=== PATIENT | male | born 1945 | race Caucasian/White ===

== ENCOUNTER 2019-02-11 14:45 | Inpatient (IN) ==
[2019-02-11] MEDS ORDERED: Aspirin 81 MG TAB.CHEW PO ONE (14:59)
[2019-02-11] MEDS ORDERED: Furosemide 40 MG/4 ML VIAL IVP ONE (15:02)
[2019-02-11 15:33] LABS: Mean Corpuscular Volume 94.1 fL (83.0-100.0)
[2019-02-11 15:35] LABS: Basophils % 0.7 %; Eosinophils # 0.2 K/mcL (0.0-0.6); Eosinophils % 4.3 %; Hematocrit 44.7 % (37.5-50.1); Immature Granulocytes % 0.7 % (0-4); Immature Platelets 2.8 % (1.1-6.1); Lymphocytes # 0.8 K/mcL (0.6-4.6); Mean Corpuscular HGB Conc 33.6 g/dL (31.6-35.5); Mean Corpuscular Hemoglobin 31.6 pg (28.0-33.3); Mean Platelet Volume 9.9 fL (9.4-12.4); Monocytes # 0.3 K/mcL (0.0-1.3); Monocytes % 7.7 %; Neutrophils # 3.1 K/mcL (1.6-8.9); Red Blood Count 4.75 M/mcL (4.19-5.50); Segmented Neutrophils % 69.6 %; White Blood Count 4.4 K/mcL (4.3-11.1)
[2019-02-11 15:38] LABS: Platelet Count 56 K/mcL (140-400)
[2019-02-11 15:47] LABS: INR 1.1
[2019-02-11 15:50] LABS: Activated Partial Thrombo Time 32.9 Seconds (26.0-36.0)
[2019-02-11 15:51] LABS: BUN/Creatinine Ratio 19 (6-26); Blood Urea Nitrogen 22 mg/dL (8-23); Calcium 9.1 mg/dL (8.6-10.3); Carbon Dioxide 30 mEq/L (23-29); Chloride 106 mEq/L (98-107); Glucose 189 mg/dL (70-105); Osmolality,Calculated 300 (280-300); Sodium 141 mEq/L (136-145); Troponin I < 0.03 ng/mL (< 0.04); eGFR For African Americans > 60 (> 60); eGFR For Non-African Americans > 60 (> 60)
[2019-02-11] MEDS ORDERED: *HR* Heparin 5,000 UNIT/ML VIAL IVP ONE (16:16)
[2019-02-11] MEDS ORDERED: *HR* Heparin 5,000 UNIT/ML VIAL IVP PRN ×2 (16:16)
[2019-02-11 16:25] LABS: Alanine Aminotransferase 31 Units/L (7-52); Albumin 3.7 g/dL (3.5-5.7); Albumin/Globulin Ratio 1.6 (1.1-2.2); Alkaline Phosphatase 75 Units/L (34-104); Aspartate Amino Transferase 30 Units/L (13-39); Bilirubin,Direct 0.5 mg/dL (0.0-0.2); Bilirubin,Indirect 2.1 mg/dL (0.0-1.2); Bilirubin,Total 2.6 mg/dL (0.3-1.0); Globulin 2.3 g/dL (2.4-3.5)
[2019-02-11] MEDS: Heparin 25,000 UNIT/250 ML D5W 25,000 UNIT/250 ML IV.SOLN IVC SCH (16:50)
[2019-02-11] MEDS ORDERED: Naloxone 0.4 MG/ML INJ IVP PRN (17:20)
[2019-02-11] MEDS ORDERED: tiZANidine 4 MG TABLET PO PRN (17:48)
[2019-02-11] MEDS: tiZANidine 4 MG TABLET PO SCH (20:15)
[2019-02-11] MEDS: Gabapentin 300 MG CAPSULE PO SCH (20:15)
[2019-02-11] MEDS: Lactulose Oral Soln 20 GM/30 ML UDC PO SCH (20:16)
[2019-02-11] MEDS: *HR* OxyCODONE Immed Rel 15 MG TABLET PO PRN (22:21)
[2019-02-12] MEDS: *HR* OxyCODONE Immed Rel 15 MG TABLET PO PRN ×3 (06:16→20:23)
[2019-02-12 07:40] LABS: Basophils % 0.6 %; Eosinophils # 0.2 K/mcL (0.0-0.6); Eosinophils % 4.4 %; Hematocrit 40.2 % (37.5-50.1); Hemoglobin 13.7 g/dL (12.9-16.9); Immature Granulocytes % 0.8 % (0-4); Lymphocytes # 0.9 K/mcL (0.6-4.6); Lymphocytes % 18.1 %; Mean Corpuscular HGB Conc 34.1 g/dL (31.6-35.5); Mean Corpuscular Volume 93.9 fL (83.0-100.0); Mean Platelet Volume 10.3 fL (9.4-12.4); Monocytes # 0.4 K/mcL (0.0-1.3); Monocytes % 9.2 %; Neutrophils # 3.2 K/mcL (1.6-8.9); Red Blood Count 4.28 M/mcL (4.19-5.50); Red Cell Distribution Width 15.1 % (11.5-14.5); Segmented Neutrophils % 66.9 %; White Blood Count 4.8 K/mcL (4.3-11.1)
[2019-02-12 07:41] LABS: Platelet Count 58 K/mcL (140-400)
[2019-02-12 07:52] LABS: BUN/Creatinine Ratio 24 (6-26); Blood Urea Nitrogen 24 mg/dL (8-23); Calcium 8.5 mg/dL (8.6-10.3); Carbon Dioxide 31 mEq/L (23-29); Chloride 107 mEq/L (98-107); Glucose 119 mg/dL (70-105); Osmolality,Calculated 295 (280-300); Potassium 3.3 mEq/L (3.5-5.1); Sodium 140 mEq/L (136-145); eGFR For African Americans > 60 (> 60); eGFR For Non-African Americans > 60 (> 60)
[2019-02-12] MEDS: Gabapentin 300 MG CAPSULE PO SCH ×2 (09:21→20:23)
[2019-02-12] MEDS: Finasteride 5 MG TABLET PO SCH (09:22)
[2019-02-12] MEDS: Furosemide 40 MG TABLET PO SCH (09:22)
[2019-02-12] MEDS: Aspirin Enteric Coated 81 MG Tablet PO SCH (09:23)
[2019-02-12] MEDS: Lactulose Oral Soln 20 GM/30 ML UDC PO SCH ×3 (09:24→20:24)
[2019-02-12] MEDS: tiZANidine 4 MG TABLET PO SCH ×2 (09:25→20:23)
[2019-02-12] MEDS ORDERED: Ondansetron 4 MG/2 ML VIAL IVP PRN (10:10)
[2019-02-12] MEDS: Heparin 25,000 UNIT/250 ML D5W 25,000 UNIT/250 ML IV.SOLN IVC SCH (19:21)
[2019-02-13] MEDS: *HR* OxyCODONE Immed Rel 15 MG TABLET PO PRN ×3 (02:52→17:36)
[2019-02-13 05:51] LABS: Hemoglobin 13.2 g/dL (12.9-16.9)
[2019-02-13 05:53] LABS: Basophils % 0.8 %; Eosinophils # 0.2 K/mcL (0.0-0.6); Eosinophils % 4.3 %; Hematocrit 39.9 % (37.5-50.1); Immature Granulocytes % 0.8 % (0-4); Immature Platelets 4.4 % (1.1-6.1); Mean Corpuscular HGB Conc 33.1 g/dL (31.6-35.5); Mean Corpuscular Hemoglobin 31.5 pg (28.0-33.3); Mean Corpuscular Volume 95.2 fL (83.0-100.0); Mean Platelet Volume 10.2 fL (9.4-12.4); Monocytes # 0.5 K/mcL (0.0-1.3); Neutrophils # 3.4 K/mcL (1.6-8.9); Platelet Count 60 K/mcL (140-400); Red Blood Count 4.19 M/mcL (4.19-5.50); Segmented Neutrophils % 66.1 %; White Blood Count 5.1 K/mcL (4.3-11.1)
[2019-02-13 06:11] LABS: BUN/Creatinine Ratio 17 (6-26); Blood Urea Nitrogen 23 mg/dL (8-23); Calcium 8.7 mg/dL (8.6-10.3); Carbon Dioxide 32 mEq/L (23-29); Chloride 104 mEq/L (98-107); Glucose 126 mg/dL (70-105); Osmolality,Calculated 289 (280-300); Potassium 3.4 mEq/L (3.5-5.1); Sodium 137 mEq/L (136-145); eGFR For African Americans > 60 (> 60); eGFR For Non-African Americans 53 (> 60)
[2019-02-13] MEDS: Multivit/Ca/Min/Fe/FA 1 TAB TABLET PO SCH (10:00)
[2019-02-13] MEDS: Furosemide 40 MG TABLET PO SCH (10:00)
[2019-02-13] MEDS: Finasteride 5 MG TABLET PO SCH (10:01)
[2019-02-13] MEDS: Gabapentin 300 MG CAPSULE PO SCH ×2 (10:01→20:07)
[2019-02-13] MEDS: Aspirin Enteric Coated 81 MG Tablet PO SCH (10:01)
[2019-02-13] MEDS: Cholecalciferol (D-3) 1,000 UNIT (25MCG) TABLET PO SCH (10:01)
[2019-02-13] MEDS: tiZANidine 4 MG TABLET PO SCH ×2 (10:02→20:08)
[2019-02-13] MEDS: Lactulose Oral Soln 20 GM/30 ML UDC PO SCH ×3 (10:02→20:07)
[2019-02-13] MEDS: Mag Hydrox/Al Hydrox/Simeth 30 ML UDC PO PRN (17:35)
[2019-02-14] MEDS: Heparin 25,000 UNIT/250 ML D5W 25,000 UNIT/250 ML IV.SOLN IVC SCH (01:01)
[2019-02-14] MEDS: *HR* OxyCODONE Immed Rel 15 MG TABLET PO PRN ×3 (04:59→23:22)
[2019-02-14 06:39] LABS: Hemoglobin 13.5 g/dL (12.9-16.9); Red Cell Distribution Width 15.2 % (11.5-14.5)
[2019-02-14 06:41] LABS: Basophils % 0.6 %; Eosinophils # 0.2 K/mcL (0.0-0.6); Eosinophils % 4.3 %; Hematocrit 39.9 % (37.5-50.1); Immature Granulocytes % 0.9 % (0-4); Immature Platelets 3.5 % (1.1-6.1); Lymphocytes # 0.8 K/mcL (0.6-4.6); Lymphocytes % 17.8 %; Mean Corpuscular HGB Conc 33.8 g/dL (31.6-35.5); Mean Corpuscular Hemoglobin 31.7 pg (28.0-33.3); Mean Corpuscular Volume 93.7 fL (83.0-100.0); Mean Platelet Volume 10.7 fL (9.4-12.4); Monocytes # 0.4 K/mcL (0.0-1.3); Monocytes % 8.8 %; Neutrophils # 3.2 K/mcL (1.6-8.9); Red Blood Count 4.26 M/mcL (4.19-5.50); Segmented Neutrophils % 67.6 %; White Blood Count 4.7 K/mcL (4.3-11.1)
[2019-02-14 06:42] LABS: Platelet Count 57 K/mcL (140-400)
[2019-02-14 07:36] LABS: Calcium 9.3 mg/dL (8.6-10.3); Potassium 3.6 mEq/L (3.5-5.1)
[2019-02-14] MEDS: Cholecalciferol (D-3) 1,000 UNIT (25MCG) TABLET PO SCH (10:22)
[2019-02-14] MEDS: Finasteride 5 MG TABLET PO SCH (10:22)
[2019-02-14] MEDS: Aspirin Enteric Coated 81 MG Tablet PO SCH (10:22)
[2019-02-14] MEDS: Furosemide 40 MG TABLET PO SCH (10:22)
[2019-02-14] MEDS: Lactulose Oral Soln 20 GM/30 ML UDC PO SCH ×3 (10:22→21:10)
[2019-02-14] MEDS: Gabapentin 300 MG CAPSULE PO SCH ×2 (10:22→21:11)
[2019-02-14] MEDS: Multivit/Ca/Min/Fe/FA 1 TAB TABLET PO SCH (10:22)
[2019-02-14] MEDS: tiZANidine 4 MG TABLET PO SCH (10:23)
[2019-02-14] MEDS ORDERED: 0.9 % Sodium Chloride 1,000 ML IVC SCH (11:00)
[2019-02-14] MEDS: 0.9 % Sodium Chloride 1,000 ML IVC SCH (12:40)
[2019-02-14] MEDS: *HR* Heparin 5,000 UNIT/ML VIAL SQ SCH (16:05)
[2019-02-14 21:00] LABS: eGFR For African Americans > 60 (> 60); eGFR For Non-African Americans 51 (> 60)
[2019-02-15] MEDS: 0.9 % Sodium Chloride 1,000 ML IVC SCH (03:24)
[2019-02-15] MEDS: *HR* Heparin 5,000 UNIT/ML VIAL SQ SCH ×2 (03:27→16:33)
[2019-02-15 05:56] LABS: Red Blood Count 4.63 M/mcL (4.19-5.50)
[2019-02-15 05:58] LABS: Basophils # 0.1 K/mcL (0.0-0.2); Basophils % 0.9 %; Eosinophils # 0.3 K/mcL (0.0-0.6); Eosinophils % 4.7 %; Hematocrit 43.6 % (37.5-50.1); Hemoglobin 14.8 g/dL (12.9-16.9); Immature Granulocytes % 1.6 % (0-4); Immature Platelets 3.2 % (1.1-6.1); Lymphocytes # 0.9 K/mcL (0.6-4.6); Lymphocytes % 14.2 %; Mean Corpuscular HGB Conc 33.9 g/dL (31.6-35.5); Mean Corpuscular Volume 94.2 fL (83.0-100.0); Mean Platelet Volume 10.7 fL (9.4-12.4); Monocytes # 0.7 K/mcL (0.0-1.3); Monocytes % 10.4 %; Neutrophils # 4.4 K/mcL (1.6-8.9); Red Cell Distribution Width 15.4 % (11.5-14.5); Segmented Neutrophils % 68.2 %; White Blood Count 6.4 K/mcL (4.3-11.1)
[2019-02-15 06:00] LABS: Platelet Count 69 K/mcL (140-400)
[2019-02-15 06:14] LABS: BUN/Creatinine Ratio 17 (6-26); Blood Urea Nitrogen 19 mg/dL (8-23); Calcium 9.2 mg/dL (8.6-10.3); Carbon Dioxide 27 mEq/L (23-29); Chloride 109 mEq/L (98-107); Glucose 100 mg/dL (70-105); Osmolality,Calculated 292 (280-300); Potassium 3.7 mEq/L (3.5-5.1); Sodium 140 mEq/L (136-145); eGFR For African Americans > 60 (> 60); eGFR For Non-African Americans > 60 (> 60)
[2019-02-15] MEDS: Lactulose Oral Soln 20 GM/30 ML UDC PO SCH ×3 (10:20→22:16)
[2019-02-15] MEDS: Gabapentin 300 MG CAPSULE PO SCH ×2 (10:21→22:16)
[2019-02-15] MEDS: Aspirin Enteric Coated 81 MG Tablet PO SCH (10:21)
[2019-02-15] MEDS: Multivit/Ca/Min/Fe/FA 1 TAB TABLET PO SCH (10:22)
[2019-02-15] MEDS: Finasteride 5 MG TABLET PO SCH (10:22)
[2019-02-15] MEDS: Cholecalciferol (D-3) 1,000 UNIT (25MCG) TABLET PO SCH (10:22)
[2019-02-15] MEDS: Mag Hydrox/Al Hydrox/Simeth 30 ML UDC PO PRN (11:05)
[2019-02-15] MEDS ORDERED: Acetaminophen 325 MG TABLET PO ONE (11:11)
[2019-02-15] MEDS: *HR* OxyCODONE Immed Rel 15 MG TABLET PO PRN ×2 (12:55→18:45)
[2019-02-16] MEDS: *HR* OxyCODONE Immed Rel 15 MG TABLET PO PRN ×3 (01:18→23:17)
[2019-02-16 02:28] LABS: Hematocrit 44.9 % (37.5-50.1); Red Cell Distribution Width 15.2 % (11.5-14.5)
[2019-02-16 02:30] LABS: Basophils # 0.1 K/mcL (0.0-0.2); Basophils % 0.9 %; Eosinophils # 0.3 K/mcL (0.0-0.6); Eosinophils % 4.5 %; Hemoglobin 15.1 g/dL (12.9-16.9); Immature Granulocytes % 0.9 % (0-4); Immature Platelets 3.5 % (1.1-6.1); Lymphocytes # 1.1 K/mcL (0.6-4.6); Lymphocytes % 16.4 %; Mean Corpuscular HGB Conc 33.6 g/dL (31.6-35.5); Mean Corpuscular Hemoglobin 32.3 pg (28.0-33.3); Mean Corpuscular Volume 96.1 fL (83.0-100.0); Mean Platelet Volume 10.8 fL (9.4-12.4); Monocytes # 0.6 K/mcL (0.0-1.3); Neutrophils # 4.3 K/mcL (1.6-8.9); Red Blood Count 4.67 M/mcL (4.19-5.50); Segmented Neutrophils % 67.3 %; White Blood Count 6.4 K/mcL (4.3-11.1)
[2019-02-16 02:33] LABS: Platelet Count 73 K/mcL (140-400)
[2019-02-16 02:43] LABS: BUN/Creatinine Ratio 16 (6-26); Blood Urea Nitrogen 16 mg/dL (8-23); Calcium 9.4 mg/dL (8.6-10.3); Carbon Dioxide 24 mEq/L (23-29); Chloride 109 mEq/L (98-107); Glucose 105 mg/dL (70-105); Osmolality,Calculated 292 (280-300); Sodium 140 mEq/L (136-145); eGFR For African Americans > 60 (> 60); eGFR For Non-African Americans > 60 (> 60)
[2019-02-16] MEDS: *HR* Heparin 5,000 UNIT/ML VIAL SQ SCH ×2 (05:24→18:24)
[2019-02-16] MEDS: Multivit/Ca/Min/Fe/FA 1 TAB TABLET PO SCH (10:37)
[2019-02-16] MEDS: Cholecalciferol (D-3) 1,000 UNIT (25MCG) TABLET PO SCH (10:37)
[2019-02-16] MEDS: Aspirin Enteric Coated 81 MG Tablet PO SCH (10:37)
[2019-02-16] MEDS: Gabapentin 300 MG CAPSULE PO SCH ×2 (10:37→21:23)
[2019-02-16] MEDS: Finasteride 5 MG TABLET PO SCH (10:37)
[2019-02-16] MEDS: Lactulose Oral Soln 20 GM/30 ML UDC PO SCH ×3 (10:38→21:24)
[2019-02-16] MEDS ORDERED: 0.9 % Sodium Chloride 1,000 ML ONE ×2 (14:18→14:31)
[2019-02-16] MEDS ORDERED: ISOVUE-370 200 ML INFUS..BTL ONE (14:18)
[2019-02-16] MEDS ORDERED: Nitroglycerin 1,000 MCG/10 ML VIAL IV ONE (14:18)
[2019-02-16] MEDS ORDERED: *HR* Heparin 10,000 UNIT/10 ML VIAL ONE (14:18)
[2019-02-16] MEDS ORDERED: Heparin 1,000 UNITS/500 mL 500 ML ONE (14:18)
[2019-02-16] MEDS ORDERED: *HR* Midazolam HCl 2 MG/2 ML VIAL ONE (14:30)
[2019-02-16] MEDS ORDERED: *HR* FentaNYL (PF) 100 MCG/2 ML VIAL ONE ×2 (14:31→14:57)
[2019-02-16] MEDS ORDERED: Acetaminophen 325 MG TABLET PO ONE (23:46)
[2019-02-17 01:51] LABS: Basophils % 0.6 %; Hemoglobin 14.3 g/dL (12.9-16.9); Mean Corpuscular HGB Conc 33.6 g/dL (31.6-35.5)
[2019-02-17 01:53] LABS: Eosinophils # 0.2 K/mcL (0.0-0.6); Eosinophils % 3.9 %; Hematocrit 42.6 % (37.5-50.1); Immature Granulocytes % 0.4 % (0-4); Immature Platelets 2.6 % (1.1-6.1); Lymphocytes # 0.8 K/mcL (0.6-4.6); Lymphocytes % 16.9 %; Mean Corpuscular Hemoglobin 31.5 pg (28.0-33.3); Mean Corpuscular Volume 93.8 fL (83.0-100.0); Mean Platelet Volume 10.8 fL (9.4-12.4); Monocytes # 0.5 K/mcL (0.0-1.3); Neutrophils # 3.3 K/mcL (1.6-8.9); Red Blood Count 4.54 M/mcL (4.19-5.50); Red Cell Distribution Width 14.8 % (11.5-14.5); Segmented Neutrophils % 67.2 %; White Blood Count 4.9 K/mcL (4.3-11.1)
[2019-02-17 02:03] LABS: Platelet Count 61 K/mcL (140-400)
[2019-02-17 02:11] LABS: BUN/Creatinine Ratio 15 (6-26); Blood Urea Nitrogen 15 mg/dL (8-23); Carbon Dioxide 24 mEq/L (23-29); Chloride 110 mEq/L (98-107); Glucose 134 mg/dL (70-105); Osmolality,Calculated 293 (280-300); Potassium 3.8 mEq/L (3.5-5.1); Sodium 140 mEq/L (136-145); eGFR For African Americans > 60 (> 60); eGFR For Non-African Americans > 60 (> 60)
[2019-02-17] MEDS: *HR* Heparin 5,000 UNIT/ML VIAL SQ SCH (05:24)
[2019-02-17] MEDS: Finasteride 5 MG TABLET PO SCH (08:14)
[2019-02-17] MEDS: Gabapentin 300 MG CAPSULE PO SCH (08:15)
[2019-02-17] MEDS: Aspirin Enteric Coated 81 MG Tablet PO SCH (08:15)
[2019-02-17] MEDS: Cholecalciferol (D-3) 1,000 UNIT (25MCG) TABLET PO SCH (08:15)
[2019-02-17] MEDS: Multivit/Ca/Min/Fe/FA 1 TAB TABLET PO SCH (08:15)
[2019-02-17] MEDS: Lactulose Oral Soln 20 GM/30 ML UDC PO SCH (08:16)
[2019-02-17] MEDS: *HR* OxyCODONE Immed Rel 15 MG TABLET PO PRN (08:22)
[2019-02-17] MEDS ORDERED: FLU Vac QV 19-20 (6Month+)/PF 0.5 ML SYRINGE IM ONE (09:21)
[2019-02-17 10:45] VITALS: BP 135/77
== END 2019-02-17 10:48 | disposition home or self-care (01) | DRG 287 ==
LOC: EMEROOARM 14:45 → 3BNU 14:45 → SUATTDRO 16:44 → 3BNU 17:32 → SUATTDRO 02-13 14:14
PROVIDERS: ADMIT Internal Medicine; ATTEND Internal Medicine

== ENCOUNTER 2021-01-25 22:19 | Inpatient (IN) ==
[2021-01-26] MEDS ORDERED: Melatonin 3 MG TABLET PO PRN (02:49)
[2021-01-26] MEDS ORDERED: Ondansetron 4 MG/2 ML VIAL IVP PRN (02:49)
[2021-01-26] MEDS ORDERED: Naloxone 0.4 MG/ML INJ IVP PRN (02:49)
[2021-01-26] MEDS ORDERED: Acetaminophen 325 MG TABLET PO PRN (02:49)
[2021-01-26] MEDS ORDERED: Perflutren Lipid Microsphere 1.3 ML in 0.9 % Sodium Chloride 8.7 ML IVP PRN (03:54)
[2021-01-26 06:55] LABS: INR 1.4
[2021-01-26 08:02] LABS: Alanine Aminotransferase 13 Units/L (7-52); Albumin 2.9 g/dL (3.5-5.7); Albumin/Globulin Ratio 1.3 (1.1-2.2); Alkaline Phosphatase 70 Units/L (34-104); Aspartate Amino Transferase 27 Units/L (13-39); BUN/Creatinine Ratio 13 (6-26); Bilirubin,Total 2.2 mg/dL (0.3-1.0); Blood Urea Nitrogen 15 mg/dL (8-23); Calcium 8.7 mg/dL (8.6-10.3); Carbon Dioxide 21 mEq/L (23-29); Chloride 110 mEq/L (98-107); Globulin 2.2 g/dL (2.4-3.5); Glucose 82 mg/dL (70-105); Osmolality,Calculated 292 (280-300); Sodium 141 mEq/L (136-145); Total Protein 5.1 g/dL (6.4-8.9); Troponin I < 0.03 ng/mL (< 0.04); eGFR For African Americans > 60 (> 60); eGFR For Non-African Americans > 60 (> 60)
[2021-01-26] MEDS: Gabapentin 300 MG CAPSULE PO SCH ×3 (09:23→20:32)
[2021-01-26] MEDS: Finasteride 5 MG TABLET PO SCH (09:23)
[2021-01-26] MEDS: Aspirin Enteric Coated 81 MG Tablet PO SCH (09:23)
[2021-01-26] MEDS: Furosemide 40 MG/4 ML VIAL IVP SCH ×2 (09:23→18:17)
[2021-01-26] MEDS: Lactulose Oral Soln 20 GM/30 ML UDC PO SCH (09:23)
[2021-01-26] MEDS: *HR* OxyCODONE Immed Rel 5 MG TABLET PO PRN (18:04)
[2021-01-26 19:41] LABS: Basophils % 0.6 %; Immature Granulocytes % 0.2 % (0-4); White Blood Count 5.2 K/mcL (4.3-11.1)
[2021-01-26 19:43] LABS: Eosinophils # 0.4 K/mcL (0.0-0.6); Hematocrit 39.1 % (37.5-50.1); Hemoglobin 13.9 g/dL (12.9-16.9); Immature Platelets 3.1 % (1.1-6.1); Lymphocytes # 1.1 K/mcL (0.6-4.6); Lymphocytes % 21.9 %; Mean Corpuscular HGB Conc 35.5 g/dL (31.6-35.5); Mean Corpuscular Hemoglobin 32.2 pg (28.0-33.3); Mean Corpuscular Volume 90.5 fL (83.0-100.0); Mean Platelet Volume 10.9 fL (9.4-12.4); Monocytes # 0.4 K/mcL (0.0-1.3); Monocytes % 7.6 %; Red Blood Count 4.32 M/mcL (4.19-5.50); Red Cell Distribution Width 13.3 % (11.5-14.5); Segmented Neutrophils % 62.7 %
[2021-01-26 19:44] LABS: Neutrophils # 3.3 K/mcL (1.6-8.9); Platelet Count 68 K/mcL (140-400)
[2021-01-27 00:40] LABS: Thyroid Stimulating Hormone 1.765 mcIU/mL (0.340-5.600)
[2021-01-27 02:53] LABS: Hemoglobin 13.8 g/dL (12.9-16.9); Mean Corpuscular Volume 93.3 fL (83.0-100.0); Mean Platelet Volume 11.3 fL (9.4-12.4); Red Cell Distribution Width 13.5 % (11.5-14.5)
[2021-01-27 02:55] LABS: Hematocrit 41.5 % (37.5-50.1); Immature Platelets 3.4 % (1.1-6.1); Mean Corpuscular HGB Conc 33.3 g/dL (31.6-35.5); Red Blood Count 4.45 M/mcL (4.19-5.50); White Blood Count 5.4 K/mcL (4.3-11.1)
[2021-01-27 03:08] LABS: BUN/Creatinine Ratio 14 (6-26); Blood Urea Nitrogen 19 mg/dL (8-23); Calcium 8.8 mg/dL (8.6-10.3); Carbon Dioxide 25 mEq/L (23-29); Chloride 110 mEq/L (98-107); Glucose 117 mg/dL (70-105); Osmolality,Calculated 295 (280-300); Potassium 3.9 mEq/L (3.5-5.1); Sodium 141 mEq/L (136-145); eGFR For African Americans > 60 (> 60); eGFR For Non-African Americans 52 (> 60)
[2021-01-27] MEDS: Lactulose Oral Soln 20 GM/30 ML UDC PO SCH (08:21)
[2021-01-27] MEDS: Furosemide 40 MG/4 ML VIAL IVP SCH (08:21)
[2021-01-27] MEDS: Gabapentin 300 MG CAPSULE PO SCH ×3 (08:21→20:19)
[2021-01-27] MEDS: Finasteride 5 MG TABLET PO SCH (08:22)
[2021-01-27] MEDS: Aspirin Enteric Coated 81 MG Tablet PO SCH (08:22)
[2021-01-27] MEDS: *HR* OxyCODONE Immed Rel 5 MG TABLET PO PRN ×2 (12:26→18:03)
[2021-01-27] MEDS: Spironolactone 25 MG TABLET PO SCH (15:44)
[2021-01-27] MEDS: tiZANidine 4 MG TABLET PO PRN (20:19)
[2021-01-28 03:15] LABS: Red Cell Distribution Width 13.4 % (11.5-14.5)
[2021-01-28 03:17] LABS: Hematocrit 38.1 % (37.5-50.1); Hemoglobin 12.8 g/dL (12.9-16.9); Immature Platelets 4.4 % (1.1-6.1); Mean Corpuscular HGB Conc 33.6 g/dL (31.6-35.5); Mean Corpuscular Hemoglobin 30.9 pg (28.0-33.3); Mean Platelet Volume 11.1 fL (9.4-12.4); Red Blood Count 4.14 M/mcL (4.19-5.50); White Blood Count 4.3 K/mcL (4.3-11.1)
[2021-01-28 03:36] LABS: Calcium 8.7 mg/dL (8.6-10.3); Potassium 3.7 mEq/L (3.5-5.1)
[2021-01-28] MEDS: Aspirin Enteric Coated 81 MG Tablet PO SCH (07:58)
[2021-01-28] MEDS: Lactulose Oral Soln 20 GM/30 ML UDC PO SCH (07:58)
[2021-01-28] MEDS: Finasteride 5 MG TABLET PO SCH (07:58)
[2021-01-28] MEDS: Gabapentin 300 MG CAPSULE PO SCH ×3 (07:59→20:44)
[2021-01-28] MEDS: Spironolactone 25 MG TABLET PO SCH (07:59)
[2021-01-28] MEDS ORDERED: Furosemide 40 MG TABLET PO SCH (08:00)
[2021-01-28 12:27] LABS: Calcium 8.8 mg/dL (8.6-10.3); Potassium 4.1 mEq/L (3.5-5.1)
[2021-01-28] MEDS: *HR* OxyCODONE Immed Rel 5 MG TABLET PO PRN ×2 (12:59→20:44)
[2021-01-28] MEDS ORDERED: 0.9 % Sodium Chloride 500 ML IVC SCH (16:30)
[2021-01-28] MEDS: Albumin 25% 25gram/100mL 25 GM/100 ML IV.SOLN IVC SCH ×2 (17:19→19:36)
[2021-01-28 18:11] LABS: Protein/Creatinine Ratio,Urine 0.11 mg/mg (0.00-0.20); Sodium, Urine 18.4 mEq/L
[2021-01-28] MEDS: tiZANidine 4 MG TABLET PO PRN (20:45)
[2021-01-29 06:09] LABS: Basophils % 0.7 %; Eosinophils # 0.3 K/mcL (0.0-0.6); Eosinophils % 8.2 %; Hematocrit 40.5 % (37.5-50.1); Hemoglobin 13.6 g/dL (12.9-16.9); Immature Granulocytes % 0.2 % (0-4); Lymphocytes # 1.2 K/mcL (0.6-4.6); Lymphocytes % 29.5 %; Mean Corpuscular HGB Conc 33.6 g/dL (31.6-35.5); Mean Corpuscular Hemoglobin 30.8 pg (28.0-33.3); Mean Corpuscular Volume 91.8 fL (83.0-100.0); Mean Platelet Volume 11.6 fL (9.4-12.4); Monocytes # 0.4 K/mcL (0.0-1.3); Monocytes % 8.7 %; Neutrophils # 2.1 K/mcL (1.6-8.9); Platelet Count 59 K/mcL (140-400); Red Blood Count 4.41 M/mcL (4.19-5.50); Red Cell Distribution Width 13.6 % (11.5-14.5); Segmented Neutrophils % 52.7 %
[2021-01-29 07:02] LABS: Potassium 4.1 mEq/L (3.5-5.1)
[2021-01-29] MEDS: Spironolactone 25 MG TABLET PO SCH (09:13)
[2021-01-29] MEDS: Finasteride 5 MG TABLET PO SCH (09:13)
[2021-01-29] MEDS: *HR* OxyCODONE Immed Rel 5 MG TABLET PO PRN (09:13)
[2021-01-29] MEDS: Aspirin Enteric Coated 81 MG Tablet PO SCH (09:13)
[2021-01-29] MEDS: Gabapentin 300 MG CAPSULE PO SCH ×2 (09:16→15:36)
[2021-01-29] MEDS: Lactulose Oral Soln 20 GM/30 ML UDC PO SCH (09:16)
[2021-01-29 11:25] VITALS: BP 113/70; PULSE 68; TEMP 97.7
[2021-01-29] MEDS ORDERED: FLU Vac QV 21-22 (6Month+)/PF 0.5 ML SYRINGE IM ONE (12:50)
[2021-01-29 14:10] VITALS: O2SAT 97
== END 2021-01-29 16:01 | disposition home or self-care (01) | DRG 314 ==
LOC: 3BNU → SUATTDRO 01-26 02:24
PROVIDERS: ADMIT Internal Medicine; ATTEND Internal Medicine

== ENCOUNTER 2021-04-22 10:14 | Inpatient (IN) ==
[2021-04-22] MEDS ORDERED: Lactulose Oral Soln 20 GM/30 ML UDC PO ONE (10:31)
[2021-04-22] MEDS ORDERED: 0.9 % Sodium Chloride 500 ML IV ONE (10:32)
[2021-04-22 10:53] LABS: Hemoglobin 14.9 g/dL (12.9-16.9); Mean Corpuscular Volume 93.8 fL (83.0-100.0)
[2021-04-22 10:55] LABS: Basophils # 0.1 K/mcL (0.0-0.2); Basophils % 0.7 %; Eosinophils # 0.5 K/mcL (0.0-0.6); Eosinophils % 5.3 %; Immature Granulocytes % 0.3 % (0-4); Immature Platelets 5.1 % (1.1-6.1); Lymphocytes # 1.3 K/mcL (0.6-4.6); Lymphocytes % 13.8 %; Mean Corpuscular HGB Conc 33.9 g/dL (31.6-35.5); Mean Corpuscular Hemoglobin 31.8 pg (28.0-33.3); Mean Platelet Volume 10.7 fL (9.4-12.4); Monocytes # 0.6 K/mcL (0.0-1.3); Monocytes % 6.5 %; Neutrophils # 6.7 K/mcL (1.6-8.9); Red Blood Count 4.69 M/mcL (4.19-5.50); Red Cell Distribution Width 14.6 % (11.5-14.5); Segmented Neutrophils % 73.4 %; White Blood Count 9.1 K/mcL (4.3-11.1)
[2021-04-22 10:58] LABS: Alanine Aminotransferase 27 Units/L (7-52); Albumin 3.7 g/dL (3.5-5.7); Albumin/Globulin Ratio 1.3 (1.1-2.2); Alkaline Phosphatase 68 Units/L (34-104); Aspartate Amino Transferase 38 Units/L (13-39); BUN/Creatinine Ratio 20 (6-26); Bilirubin,Direct 0.8 mg/dL (0.0-0.2); Bilirubin,Indirect 7.4 mg/dL (0.0-1.0); Bilirubin,Total 8.2 mg/dL (0.3-1.0); Blood Urea Nitrogen 45 mg/dL (8-23); Calcium 9.8 mg/dL (8.6-10.3); Carbon Dioxide 33 mEq/L (23-29); Chloride 100 mEq/L (98-107); Ethanol < 10 mg/dL (Less than 10); Globulin 2.9 g/dL (2.4-3.5); Glucose 105 mg/dL (70-105); Osmolality,Calculated 296 (280-300); Potassium 4.3 mEq/L (3.5-5.1); Sodium 137 mEq/L (136-145); Total Protein 6.6 g/dL (6.4-8.9); eGFR For African Americans 34 (> 60); eGFR For Non-African Americans 28 (> 60)
[2021-04-22 11:00] LABS: INR 1.1; Prothrombin Time 12.7 Seconds (9.4-12.1)
[2021-04-22 11:03] LABS: Platelet Count 75 K/mcL (140-400)
[2021-04-22 12:21] LABS: Bilirubin,Urine Negative (Negative); Blood,Urine Large (Negative); Clarity,Urine Clear (Clear); Color,Urine Yellow (Yellow); Glucose,Urine (UA) Normal (Normal); Ketones,Urine Negative (Negative); Leukocyte Esterase,Urine Negative (Negative); Nitrite,Urine Negative (Negative); Protein,Urine Negative (Neg-Trace); Urobilinogen,Urine Normal (Normal)
[2021-04-22 12:31] LABS: Amorphous Sediment,Urine Few per hpf (None-Few); Hyaline Casts,Urine Few per lpf (None Seen); Mucus,Urine Few per lpf (None-Few); RBC,Urine 50-100 per hpf (0-3); Squamous Epithelial Cell,Urine Few per hpf (None-Few); WBC,Urine 0-3 per hpf (0-3)
[2021-04-22 12:32] LABS: Amphetamine Screen,Urine Negative ng/mL (Cutoff=1000); Barbiturate Screen,Urine Negative ng/mL (Cutoff=200); Benzodiazepines Screen,Urine Negative ng/mL (Cutoff=200); Cannabinoid Screen,Urine Positive ng/mL (Cutoff = 50); Cocaine Screen,Urine Negative ng/mL (Cutoff= 300); Opiate Screen,Urine Positive ng/mL (Cutoff=300); Phencyclidine Screen,Urine Negative ng/mL (Cutoff=25)
[2021-04-22 13:01] LABS: Influenza A PCR Negative (Negative); Influenza B PCR Negative (Negative); Resp. Syncytial Virus PCR Negative (Negative)
[2021-04-22 13:36] LABS: SARS-CoV-2 by PCR (In House) Negative (Negative)
[2021-04-22] MEDS ORDERED: Naloxone 0.4 MG/ML INJ IVP PRN (14:21)
[2021-04-22] MEDS ORDERED: Ondansetron 4 MG/2 ML VIAL IVP PRN (14:21)
[2021-04-22] MEDS ORDERED: 0.9 % Sodium Chloride 1,000 ML IVC ONE (14:41)
[2021-04-22 14:51] LABS: Magnesium 2.4 mg/dL (1.6-2.6)
[2021-04-22 14:53] LABS: Thyroid Stimulating Hormone 1.221 mcIU/mL (0.340-5.600)
[2021-04-22] MEDS ORDERED: Lactulose 200 GM, Sodium Chloride IRRigation 700 ML RC ONE (18:00)
[2021-04-22] MEDS: polyethylene glycoL 3350 17 GM POWD.PACK PO SCH (21:20)
[2021-04-23 05:51] LABS: Mean Corpuscular Hemoglobin 31.7 pg (28.0-33.3)
[2021-04-23 05:53] LABS: Basophils % 0.4 %; Eosinophils # 0.4 K/mcL (0.0-0.6); Eosinophils % 3.9 %; Hematocrit 39.3 % (37.5-50.1); Immature Granulocytes % 0.3 % (0-4); Immature Platelets 5.5 % (1.1-6.1); Lymphocytes # 1.2 K/mcL (0.6-4.6); Lymphocytes % 12.5 %; Mean Corpuscular HGB Conc 33.1 g/dL (31.6-35.5); Mean Corpuscular Volume 95.9 fL (83.0-100.0); Mean Platelet Volume 11.2 fL (9.4-12.4); Monocytes # 0.6 K/mcL (0.0-1.3); Monocytes % 5.9 %; Red Cell Distribution Width 14.5 % (11.5-14.5); White Blood Count 9.8 K/mcL (4.3-11.1)
[2021-04-23 05:57] LABS: Neutrophils # 7.6 K/mcL (1.6-8.9); Platelet Count 57 K/mcL (140-400)
[2021-04-23 06:00] LABS: INR 1.2
[2021-04-23 06:01] LABS: Albumin 3.2 g/dL (3.5-5.7); Albumin/Globulin Ratio 1.3 (1.1-2.2); Bilirubin,Direct 0.8 mg/dL (0.0-0.2); Bilirubin,Indirect 5.6 mg/dL (0.0-1.0); Bilirubin,Total 6.4 mg/dL (0.3-1.0); Calcium 9.4 mg/dL (8.6-10.3); Globulin 2.4 g/dL (2.4-3.5); Magnesium 2.3 mg/dL (1.6-2.6); Potassium 4.6 mEq/L (3.5-5.1); Total Protein 5.6 g/dL (6.4-8.9)
[2021-04-23] MEDS: Lactulose Oral Soln 20 GM/30 ML UDC PO SCH ×3 (08:04→20:35)
[2021-04-23] MEDS: polyethylene glycoL 3350 17 GM POWD.PACK PO SCH ×2 (08:04→20:35)
[2021-04-23 09:17] LABS: Uric Acid 4.2 mg/dL (2.3-7.6)
[2021-04-23] MEDS ORDERED: Milk and Molasses Enema 200 ML RC ONE (13:19)
[2021-04-23] MEDS: Morphine Sulfate/Pf [Morphine Intrathecdal Pump] TP SCH (13:34)
[2021-04-23 17:45] LABS: Complement C3 84 mg/dL (87-200)
[2021-04-23] MEDS: Gabapentin 300 MG CAPSULE PO SCH (22:38)
[2021-04-24 05:39] LABS: Basophils # 0.1 K/mcL (0.0-0.2); Basophils % 0.5 %; Eosinophils # 0.3 K/mcL (0.0-0.6); Eosinophils % 3.3 %; Hematocrit 41.4 % (37.5-50.1); Hemoglobin 13.9 g/dL (12.9-16.9); Immature Granulocytes % 0.3 % (0-4); Immature Platelets 6.2 % (1.1-6.1); Lymphocytes # 1.2 K/mcL (0.6-4.6); Lymphocytes % 11.6 %; Mean Corpuscular HGB Conc 33.6 g/dL (31.6-35.5); Mean Corpuscular Volume 95.2 fL (83.0-100.0); Mean Platelet Volume 11.4 fL (9.4-12.4); Monocytes # 0.7 K/mcL (0.0-1.3); Monocytes % 6.5 %; Neutrophils # 7.9 K/mcL (1.6-8.9); Red Blood Count 4.35 M/mcL (4.19-5.50); Red Cell Distribution Width 14.2 % (11.5-14.5); Segmented Neutrophils % 77.8 %; White Blood Count 10.2 K/mcL (4.3-11.1)
[2021-04-24 05:42] LABS: Platelet Count 56 K/mcL (140-400)
[2021-04-24 05:43] LABS: INR 1.2; Prothrombin Time 13.5 Seconds (9.4-12.1)
[2021-04-24 06:15] LABS: Albumin 3.5 g/dL (3.5-5.7); Albumin/Globulin Ratio 1.3 (1.1-2.2); Bilirubin,Direct 0.9 mg/dL (0.0-0.2); Bilirubin,Indirect 5.6 mg/dL (0.0-1.0); Bilirubin,Total 6.5 mg/dL (0.3-1.0); Calcium 9.6 mg/dL (8.6-10.3); Globulin 2.8 g/dL (2.4-3.5); Magnesium 2.1 mg/dL (1.6-2.6); Potassium 4.4 mEq/L (3.5-5.1); Total Protein 6.3 g/dL (6.4-8.9)
[2021-04-24] MEDS: Finasteride 5 MG TABLET PO SCH (10:02)
[2021-04-24] MEDS: Lactulose Oral Soln 20 GM/30 ML UDC PO SCH ×3 (10:02→20:24)
[2021-04-24] MEDS: polyethylene glycoL 3350 17 GM POWD.PACK PO SCH ×2 (10:02→20:29)
[2021-04-24] MEDS: Gabapentin 300 MG CAPSULE PO SCH ×3 (10:02→20:29)
[2021-04-24] MEDS: Morphine Sulfate/Pf [Morphine Intrathecdal Pump] TP SCH (10:24)
[2021-04-24 13:29] LABS: Sodium, Urine 52.8 mEq/L
[2021-04-24] MEDS ORDERED: Gadolinium Contrast Agent (WT Based) IV PRN (20:11)
[2021-04-24] MEDS ORDERED: Gabapentin 300 MG CAPSULE PO SCH (21:00)
[2021-04-25 07:47] LABS: Albumin 3.5 g/dL (3.5-5.7); Albumin/Globulin Ratio 1.3 (1.1-2.2); Bilirubin,Direct 0.7 mg/dL (0.0-0.2); Bilirubin,Indirect 4.7 mg/dL (0.0-1.0); Bilirubin,Total 5.4 mg/dL (0.3-1.0); Globulin 2.7 g/dL (2.4-3.5); Total Protein 6.2 g/dL (6.4-8.9)
[2021-04-25] MEDS: Lactulose Oral Soln 20 GM/30 ML UDC PO SCH ×3 (07:47→21:35)
[2021-04-25] MEDS: polyethylene glycoL 3350 17 GM POWD.PACK PO SCH ×2 (07:47→21:35)
[2021-04-25 07:48] LABS: INR 1.2; Prothrombin Time 13.9 Seconds (9.4-12.1)
[2021-04-25] MEDS: Morphine Sulfate/Pf [Morphine Intrathecdal Pump] TP SCH (07:48)
[2021-04-25] MEDS: Gabapentin 300 MG CAPSULE PO SCH ×3 (07:48→21:35)
[2021-04-25] MEDS: Finasteride 5 MG TABLET PO SCH (07:48)
[2021-04-25] MEDS ORDERED: GADOBUTROL 30 MMOL/30 ML VIAL IVP ONE (09:50)
[2021-04-25 12:10] LABS: Eosinophils % 3.4 %; Hemoglobin 13.1 g/dL (12.9-16.9); Immature Granulocytes % 0.2 % (0-4); Mean Corpuscular Hemoglobin 32.3 pg (28.0-33.3); Red Cell Distribution Width 13.8 % (11.5-14.5)
[2021-04-25 12:12] LABS: Basophils % 0.3 %; Eosinophils # 0.2 K/mcL (0.0-0.6); Hematocrit 37.5 % (37.5-50.1); Immature Platelets 4.3 % (1.1-6.1); Lymphocytes # 0.9 K/mcL (0.6-4.6); Lymphocytes % 14.2 %; Mean Corpuscular HGB Conc 34.9 g/dL (31.6-35.5); Mean Corpuscular Volume 92.6 fL (83.0-100.0); Mean Platelet Volume 10.7 fL (9.4-12.4); Monocytes # 0.6 K/mcL (0.0-1.3); Monocytes % 8.9 %; Red Blood Count 4.05 M/mcL (4.19-5.50); White Blood Count 6.5 K/mcL (4.3-11.1)
[2021-04-25 12:15] LABS: Neutrophils # 4.8 K/mcL (1.6-8.9); Platelet Count 59 K/mcL (140-400)
[2021-04-25 12:25] LABS: BUN/Creatinine Ratio 17 (6-26); Blood Urea Nitrogen 22 mg/dL (8-23); Calcium 9.6 mg/dL (8.6-10.3); Carbon Dioxide 31 mEq/L (23-29); Chloride 102 mEq/L (98-107); Glucose 112 mg/dL (70-105); Osmolality,Calculated 288 (280-300); Potassium 3.6 mEq/L (3.5-5.1); Sodium 137 mEq/L (136-145); eGFR For African Americans > 60 (> 60); eGFR For Non-African Americans 53 (> 60)
[2021-04-26 04:20] LABS: Lambda Qnt Free Light Chains 33.1 mg/L (5.71-26.30)
[2021-04-26] MEDS: Lactulose Oral Soln 20 GM/30 ML UDC PO SCH ×2 (10:17→14:14)
[2021-04-26] MEDS: Finasteride 5 MG TABLET PO SCH (10:17)
[2021-04-26] MEDS: Gabapentin 300 MG CAPSULE PO SCH ×2 (10:17→14:14)
[2021-04-26] MEDS: polyethylene glycoL 3350 17 GM POWD.PACK PO SCH (10:18)
[2021-04-26 12:06] LABS: Eosinophils % 5.5 %; Lymphocytes % 14.8 %
[2021-04-26 12:08] LABS: Basophils % 0.5 %; Eosinophils # 0.3 K/mcL (0.0-0.6); Hematocrit 37.4 % (37.5-50.1); Immature Granulocytes % 0.2 % (0-4); Immature Platelets 4.6 % (1.1-6.1); Lymphocytes # 0.8 K/mcL (0.6-4.6); Mean Corpuscular HGB Conc 34.8 g/dL (31.6-35.5); Mean Corpuscular Hemoglobin 32.2 pg (28.0-33.3); Mean Corpuscular Volume 92.6 fL (83.0-100.0); Mean Platelet Volume 10.6 fL (9.4-12.4); Monocytes # 0.5 K/mcL (0.0-1.3); Monocytes % 9.1 %; Neutrophils # 3.9 K/mcL (1.6-8.9); Red Blood Count 4.04 M/mcL (4.19-5.50); Red Cell Distribution Width 13.8 % (11.5-14.5); Segmented Neutrophils % 69.9 %; White Blood Count 5.6 K/mcL (4.3-11.1)
[2021-04-26 12:09] LABS: Platelet Count 59 K/mcL (140-400)
[2021-04-26] MEDS: Morphine Sulfate/Pf [Morphine Intrathecdal Pump] TP SCH (12:15)
[2021-04-26 12:19] LABS: INR 1.4; Prothrombin Time 15.5 Seconds (9.4-12.1)
[2021-04-26 12:53] LABS: Alanine Aminotransferase 26 Units/L (7-52); Albumin 3.4 g/dL (3.5-5.7); Albumin/Globulin Ratio 1.4 (1.1-2.2); Alkaline Phosphatase 57 Units/L (34-104); Aspartate Amino Transferase 34 Units/L (13-39); BUN/Creatinine Ratio 15 (6-26); Bilirubin,Direct 0.7 mg/dL (0.0-0.2); Bilirubin,Indirect 4.3 mg/dL (0.0-1.0); Blood Urea Nitrogen 19 mg/dL (8-23); Calcium 9.5 mg/dL (8.6-10.3); Carbon Dioxide 30 mEq/L (23-29); Chloride 101 mEq/L (98-107); Globulin 2.5 g/dL (2.4-3.5); Glucose 124 mg/dL (70-105); Magnesium 1.7 mg/dL (1.6-2.6); Osmolality,Calculated 284 (280-300); Phosphorous 2.6 mg/dL (2.7-4.5); Potassium 3.5 mEq/L (3.5-5.1); Sodium 135 mEq/L (136-145); Total Protein 5.9 g/dL (6.4-8.9); eGFR For African Americans > 60 (> 60); eGFR For Non-African Americans 55 (> 60)
[2021-04-26 13:34] LABS: ANA IgG by ELISA DETECTED (None Detected); Kappa Qnt Free Light Chains 47.24 mg/L (3.30-19.40); Serine Protease-3 Antibody 0 AU/mL (0-19)
[2021-04-26 15:30] VITALS: BP 139/59; PULSE 66; TEMP 97.7; O2SAT 96
[2021-04-26 19:31] LABS: Adenovirus Not Detected (Not Detect); Bordetella Pertussis Not Detected (Not Detect); Chlamydophila pneumoniae Not Detected (Not Detect); Coronavirus 229E Not Detected (Not Detect); Coronavirus HKU1 Not Detected (Not Detect); Coronavirus NL63 Not Detected (Not Detect); Coronavirus OC43 Not Detected (Not Detect); Human Metapneumovirus Not Detected (Not Detect); Human Rhinovirus/Enterovirus Not Detected (Not Detect); Influenza A Subtype 2009 H1 Not Detected (Not Detect); Influenza B Not Detected (Not Detect); Mycoplasma pneumoniae Not Detected (Not Detect); Parainfluenza Virus 1 Not Detected (Not Detect); Parainfluenza Virus 2 Not Detected (Not Detect); Parainfluenza Virus 3 Not Detected (Not Detect); Parainfluenza Virus 4 Not Detected (Not Detect); Respiratory Syncytial Virus Not Detected (Not Detect); SARS-CoV-2 Not Detected (Not Detect)
[2021-04-27 00:43] LABS: ANA HEp-2 IgG IFA DETECTED (<1:80); Anti Nuclear Ab Pattern SPECKLED
[2021-04-28 16:38] LABS: Alpha 2 Globulin (PEP) 0.58 g/dL (0.48-1.05); Beta Globulin (PEP) 0.63 g/dL (0.48-1.10)
[2021-04-29 11:18] LABS: IFE Reflexed NOT DONE
== END 2021-04-26 19:21 | DRG 432 ==
LOC: EMEROOARM 10:14 → 2NENU 10:14 → 3BNU 10:14 → 2NENU 20:07
PROVIDERS: ADMIT Hospitalist; ATTEND Hospitalist

== ENCOUNTER 2021-05-04 06:27 | Inpatient (IN) ==
[2021-05-04] MEDS ORDERED: Ondansetron 4 MG/2 ML VIAL IVP PRN (09:32)
[2021-05-04] MEDS ORDERED: Naloxone 0.4 MG/ML INJ IVP PRN (09:32)
[2021-05-04] MEDS ORDERED: 0.9 % Sodium Chloride 1,000 ML IVC SCH (11:00)
[2021-05-04] MEDS ORDERED: 0.9 % Sodium Chloride 500 ML IVC ONE (11:00)
[2021-05-04] MEDS: Lactulose Oral Soln 20 GM/30 ML UDC PO SCH ×2 (11:01→21:59)
[2021-05-04] MEDS: Finasteride 5 MG TABLET PO SCH (11:02)
[2021-05-04] MEDS: Acetaminophen 325 MG TABLET PO PRN (20:19)
[2021-05-04 22:05] LABS: Bacteria,Urine Few per hpf (None-Few); Bilirubin,Urine Negative (Negative); Blood,Urine Small (Negative); Clarity,Urine Turbid (Clear); Color,Urine Yellow (Yellow); Glucose,Urine (UA) Normal (Normal); Hyaline Casts,Urine Few per lpf (None Seen); Ketones,Urine Negative (Negative); Leukocyte Esterase,Urine Large (Negative); Mucus,Urine Few per lpf (None-Few); Nitrite,Urine Positive (Negative); Protein,Urine Trace mg/dL (Neg-Trace); Specific Gravity,Urine 1.013 (1.010-1.025); Squamous Epithelial Cell,Urine Few per hpf (None-Few); Urobilinogen,Urine Normal (Normal); WBC,Urine TNTC per hpf (0-3)
[2021-05-04 22:08] LABS: Sodium, Urine 22.7 mEq/L
[2021-05-05 06:10] LABS: Hemoglobin 11.9 g/dL (12.9-16.9)
[2021-05-05 06:12] LABS: Hematocrit 34.2 % (37.5-50.1); Immature Platelets 3.7 % (1.1-6.1); Mean Corpuscular HGB Conc 34.8 g/dL (31.6-35.5); Mean Corpuscular Hemoglobin 33.1 pg (28.0-33.3); Mean Platelet Volume 10.5 fL (9.4-12.4); Red Blood Count 3.6 M/mcL (4.19-5.50); Red Cell Distribution Width 14.9 % (11.5-14.5); White Blood Count 3.8 K/mcL (4.3-11.1)
[2021-05-05 06:20] LABS: INR 1.2; Prothrombin Time 13.1 Seconds (9.4-12.1)
[2021-05-05 06:29] LABS: Albumin 2.8 g/dL (3.5-5.7); Albumin/Globulin Ratio 1.3 (1.1-2.2); Bilirubin,Direct 0.6 mg/dL (0.0-0.2); Bilirubin,Total 3.6 mg/dL (0.3-1.0); Calcium 8.7 mg/dL (8.6-10.3); Globulin 2.1 g/dL (2.4-3.5); Phosphorous 2.9 mg/dL (2.7-4.5); Potassium 3.9 mEq/L (3.5-5.1); Total Protein 4.9 g/dL (6.4-8.9)
[2021-05-05] MEDS: Finasteride 5 MG TABLET PO SCH (09:47)
[2021-05-05] MEDS: Lactulose Oral Soln 20 GM/30 ML UDC PO SCH ×3 (09:47→21:28)
[2021-05-05] MEDS: Acetaminophen 325 MG TABLET PO PRN (09:55)
[2021-05-05] MEDS ORDERED: 0.9 % Sodium Chloride 1,000 ML IVC SCH (13:45)
[2021-05-06 06:40] LABS: Basophils % 0.6 %; Immature Granulocytes % 0.3 % (0-4); Red Cell Distribution Width 14.6 % (11.5-14.5)
[2021-05-06 06:42] LABS: Eosinophils # 0.3 K/mcL (0.0-0.6); Eosinophils % 7.9 %; Hematocrit 35.6 % (37.5-50.1); Hemoglobin 11.7 g/dL (12.9-16.9); Immature Platelets 1.9 % (1.1-6.1); Lymphocytes # 1.1 K/mcL (0.6-4.6); Lymphocytes % 30.8 %; Mean Corpuscular HGB Conc 32.9 g/dL (31.6-35.5); Mean Corpuscular Hemoglobin 32.1 pg (28.0-33.3); Mean Corpuscular Volume 97.5 fL (83.0-100.0); Mean Platelet Volume 11.5 fL (9.4-12.4); Monocytes # 0.3 K/mcL (0.0-1.3); Monocytes % 8.2 %; Neutrophils # 1.8 K/mcL (1.6-8.9); Red Blood Count 3.65 M/mcL (4.19-5.50); Segmented Neutrophils % 52.2 %; White Blood Count 3.4 K/mcL (4.3-11.1)
[2021-05-06 06:46] LABS: Platelet Count 50 K/mcL (140-400)
[2021-05-06 06:57] LABS: Alanine Aminotransferase 26 Units/L (7-52); Albumin 2.8 g/dL (3.5-5.7); Albumin/Globulin Ratio 1.3 (1.1-2.2); Alkaline Phosphatase 64 Units/L (34-104); Aspartate Amino Transferase 28 Units/L (13-39); BUN/Creatinine Ratio 15 (6-26); Bilirubin,Direct 0.5 mg/dL (0.0-0.2); Bilirubin,Indirect 2.6 mg/dL (0.0-1.0); Bilirubin,Total 3.1 mg/dL (0.3-1.0); Blood Urea Nitrogen 20 mg/dL (8-23); Calcium 8.7 mg/dL (8.6-10.3); Carbon Dioxide 29 mEq/L (23-29); Chloride 105 mEq/L (98-107); Creatine Kinase 49 Units/L (30-223); Globulin 2.2 g/dL (2.4-3.5); Glucose 101 mg/dL (70-105); Osmolality,Calculated 293 (280-300); Potassium 3.7 mEq/L (3.5-5.1); Sodium 140 mEq/L (136-145); Uric Acid 5.7 mg/dL (2.3-7.6); eGFR For African Americans > 60 (> 60); eGFR For Non-African Americans 52 (> 60)
[2021-05-06] MEDS: Finasteride 5 MG TABLET PO SCH (09:14)
[2021-05-06] MEDS: Lactulose Oral Soln 20 GM/30 ML UDC PO SCH ×2 (09:15→21:21)
[2021-05-06 10:50] LABS: Protein/Creatinine Ratio,Urine 0.12 mg/mg (0.00-0.20)
[2021-05-06] MEDS ORDERED: [UNRECOGNIZED DRUG - OTHER] TP PRN (11:45)
[2021-05-06] MEDS ORDERED: Patient Taking Own Medication 1 EACH IT PRN (11:45)
[2021-05-06] MEDS: Ondansetron 4 MG/2 ML VIAL IVP PRN (14:19)
[2021-05-07 05:27] LABS: Basophils % 0.6 %; Hematocrit 33.9 % (37.5-50.1); Hemoglobin 11.4 g/dL (12.9-16.9); Immature Granulocytes % 0.3 % (0-4); Mean Corpuscular HGB Conc 33.6 g/dL (31.6-35.5); Mean Corpuscular Hemoglobin 31.8 pg (28.0-33.3); Mean Corpuscular Volume 94.4 fL (83.0-100.0); Mean Platelet Volume 10.6 fL (9.4-12.4); Red Blood Count 3.59 M/mcL (4.19-5.50); Red Cell Distribution Width 14.4 % (11.5-14.5)
[2021-05-07 05:30] LABS: Eosinophils # 0.3 K/mcL (0.0-0.6); Eosinophils % 9.2 %; Immature Platelets 2.4 % (1.1-6.1); Lymphocytes % 29.5 %; Monocytes # 0.3 K/mcL (0.0-1.3); Monocytes % 8.6 %; Neutrophils # 1.7 K/mcL (1.6-8.9); Segmented Neutrophils % 51.8 %; White Blood Count 3.3 K/mcL (4.3-11.1)
[2021-05-07 05:45] LABS: Platelet Count 50 K/mcL (140-400)
[2021-05-07 06:32] LABS: Alanine Aminotransferase 24 Units/L (7-52); Albumin 2.8 g/dL (3.5-5.7); Albumin/Globulin Ratio 1.3 (1.1-2.2); Alkaline Phosphatase 45 Units/L (34-104); Aspartate Amino Transferase 27 Units/L (13-39); BUN/Creatinine Ratio 12 (6-26); Bilirubin,Direct 0.6 mg/dL (0.0-0.2); Bilirubin,Indirect 2.4 mg/dL (0.0-1.0); Blood Urea Nitrogen 14 mg/dL (8-23); Carbon Dioxide 29 mEq/L (23-29); Chloride 106 mEq/L (98-107); Globulin 2.1 g/dL (2.4-3.5); Glucose 90 mg/dL (70-105); Osmolality,Calculated 290 (280-300); Potassium 3.7 mEq/L (3.5-5.1); Sodium 140 mEq/L (136-145); Total Protein 4.9 g/dL (6.4-8.9); eGFR For African Americans > 60 (> 60); eGFR For Non-African Americans 60 (> 60)
[2021-05-07] MEDS: Finasteride 5 MG TABLET PO SCH (07:24)
[2021-05-07] MEDS: Lactulose Oral Soln 20 GM/30 ML UDC PO SCH ×2 (07:26→21:45)
[2021-05-07] MEDS: Ondansetron 4 MG/2 ML VIAL IVP PRN ×2 (09:14→17:25)
[2021-05-07] MEDS: Melatonin 3 MG TABLET PO PRN (21:41)
[2021-05-07] MEDS: Sulfamethoxazole/Trimeth DS 1 EACH TABLET PO SCH (21:42)
[2021-05-08 06:51] LABS: Hemoglobin 11.6 g/dL (12.9-16.9); Red Cell Distribution Width 14.2 % (11.5-14.5)
[2021-05-08 06:53] LABS: Basophils % 1.1 %; Eosinophils # 0.3 K/mcL (0.0-0.6); Eosinophils % 10.2 %; Hematocrit 34.2 % (37.5-50.1); Immature Platelets 2.4 % (1.1-6.1); Lymphocytes # 0.8 K/mcL (0.6-4.6); Lymphocytes % 30.1 %; Mean Corpuscular HGB Conc 33.9 g/dL (31.6-35.5); Mean Corpuscular Hemoglobin 32.1 pg (28.0-33.3); Mean Corpuscular Volume 94.7 fL (83.0-100.0); Mean Platelet Volume 10.8 fL (9.4-12.4); Monocytes # 0.2 K/mcL (0.0-1.3); Monocytes % 7.1 %; Neutrophils # 1.4 K/mcL (1.6-8.9); Platelet Count 42 K/mcL (140-400); Red Blood Count 3.61 M/mcL (4.19-5.50); Segmented Neutrophils % 51.5 %; White Blood Count 2.7 K/mcL (4.3-11.1)
[2021-05-08 07:16] LABS: Alanine Aminotransferase 26 Units/L (7-52); Albumin 2.7 g/dL (3.5-5.7); Albumin/Globulin Ratio 1.3 (1.1-2.2); Alkaline Phosphatase 48 Units/L (34-104); Aspartate Amino Transferase 29 Units/L (13-39); BUN/Creatinine Ratio 11 (6-26); Bilirubin,Direct 0.5 mg/dL (0.0-0.2); Bilirubin,Indirect 2.5 mg/dL (0.0-1.0); Blood Urea Nitrogen 13 mg/dL (8-23); Calcium 8.9 mg/dL (8.6-10.3); Carbon Dioxide 29 mEq/L (23-29); Chloride 106 mEq/L (98-107); Globulin 2.1 g/dL (2.4-3.5); Glucose 92 mg/dL (70-105); Osmolality,Calculated 288 (280-300); Sodium 139 mEq/L (136-145); Total Protein 4.8 g/dL (6.4-8.9); eGFR For African Americans > 60 (> 60); eGFR For Non-African Americans 57 (> 60)
[2021-05-08] MEDS: Finasteride 5 MG TABLET PO SCH (07:33)
[2021-05-08] MEDS: Sulfamethoxazole/Trimeth DS 1 EACH TABLET PO SCH (07:33)
[2021-05-08] MEDS: Lactulose Oral Soln 20 GM/30 ML UDC PO SCH ×2 (07:34→20:53)
[2021-05-08] MEDS: Cefdinir 300 MG CAPSULE PO SCH (20:51)
[2021-05-08] MEDS: Melatonin 3 MG TABLET PO PRN (22:37)
[2021-05-09 04:40] LABS: Hematocrit 34.9 % (37.5-50.1); Hemoglobin 11.8 g/dL (12.9-16.9); Immature Platelets 3.4 % (1.1-6.1); Mean Corpuscular HGB Conc 33.8 g/dL (31.6-35.5); Mean Corpuscular Hemoglobin 31.8 pg (28.0-33.3); Mean Corpuscular Volume 94.1 fL (83.0-100.0); Mean Platelet Volume 10.7 fL (9.4-12.4); Red Blood Count 3.71 M/mcL (4.19-5.50); White Blood Count 3.4 K/mcL (4.3-11.1)
[2021-05-09 04:56] LABS: Alanine Aminotransferase 26 Units/L (7-52); Albumin 2.8 g/dL (3.5-5.7); Albumin/Globulin Ratio 1.3 (1.1-2.2); Alkaline Phosphatase 54 Units/L (34-104); Aspartate Amino Transferase 30 Units/L (13-39); BUN/Creatinine Ratio 10 (6-26); Bilirubin,Total 2.9 mg/dL (0.3-1.0); Blood Urea Nitrogen 12 mg/dL (8-23); Calcium 9.1 mg/dL (8.6-10.3); Carbon Dioxide 29 mEq/L (23-29); Chloride 106 mEq/L (98-107); Globulin 2.2 g/dL (2.4-3.5); Glucose 95 mg/dL (70-105); Magnesium 1.5 mg/dL (1.6-2.6); Osmolality,Calculated 286 (280-300); Potassium 3.9 mEq/L (3.5-5.1); Sodium 138 mEq/L (136-145); eGFR For African Americans > 60 (> 60); eGFR For Non-African Americans 60 (> 60)
[2021-05-09 07:50] LABS: Alpha 2 Globulin (PEP) 0.45 g/dL (0.48-1.05); Beta Globulin (PEP) 0.54 g/dL (0.48-1.10)
[2021-05-09] MEDS: Finasteride 5 MG TABLET PO SCH (09:39)
[2021-05-09] MEDS: Cefdinir 300 MG CAPSULE PO SCH (09:39)
[2021-05-09] MEDS: Lactulose Oral Soln 20 GM/30 ML UDC PO SCH ×2 (09:40→20:21)
[2021-05-09 12:00] LABS: IFE Reflexed NOT DONE
[2021-05-09 18:23] LABS: Influenza A PCR Negative (Negative); Influenza B PCR Negative (Negative); Resp. Syncytial Virus PCR Negative (Negative)
[2021-05-09 18:24] LABS: SARS-CoV-2 by PCR (In House) Negative (Negative)
[2021-05-09] MEDS: Melatonin 3 MG TABLET PO PRN (20:21)
[2021-05-10] MEDS: Finasteride 5 MG TABLET PO SCH (09:01)
[2021-05-10] MEDS: Lactulose Oral Soln 20 GM/30 ML UDC PO SCH (09:02)
[2021-05-10 15:24] VITALS: BP 112/70; PULSE 61; TEMP 98.1; O2SAT 96
== END 2021-05-10 16:03 | disposition other institution (70) | DRG 441 ==
LOC: 3ANU → SUATTDRO 08:22
PROVIDERS: ADMIT Internal Medicine; ATTEND Internal Medicine